=== PATIENT | male | born 1970 | race Caucasian/White ===

== ENCOUNTER 2021-07-03 08:36 | Day surgery (SDC) | payer OTHER ==
[2021-07-01 14:50] VITALS: BMI 29.9
[~2021-07-03 08:36] MED LIST: LACTATED RINGERS 1,000 ML IV SCH
[2021-07-03 09:11] VITALS: TEMP 98.2
[2021-07-03] MEDS ORDERED: PROPOFOL 10 MG/ML 20 ML VIAL IV ONE (10:10)
--- NOTE | 2021-07-03 10:14 | P.HPIHPCON ---
History of Present Illness H&P Date: 07/03/21 50-year-old male presents today for screening colonoscopy. He denies any blood in his stool. He has never had a colonoscopy. Denies any family history of colon cancer. Consent for Procedure: I have explained the operation/procedure to the patient, including the risks, be nefits, side effects, alternative therapies (including not receiving the proposed treatment or service), the likelihood of the patient achieving his/her goals, and potential recuperation problems for the procedure/sedation/analgesia, as well as any blood products, if indicated. I also explained to the patient the risks, benefits and side effects of the alternatives, as well as the risks related to not receiving the proposed procedure, care, treatment, or services. - Review of Systems All systems: negative Past Medical History Past Medical History: No Reported History History of Any Multi-Drug Resistant Organisms: None Reported Past Surgical History: No Surgical Hx Reported Past Anesthesia/Blood Transfusion Reactions: No Reported Reaction Additional Past Anesthesia/Blood Transfusion Reaction / Comment(s): Has never had anesthesia. Past Psychological History: No Psychological Hx Reported Smoking Status: Never smoker Past Alcohol Use History: Occasional Past Drug Use History: None Reported - Past Family History Father Family Medical History: Cancer, Deep Vein Thrombosis (DVT) Additional Family Medical History / Comment(s): Lung cancer. Medications and Allergies Home Medications Medication Instructions Recorded Confirmed Type Multivitamins, Thera [Multivitamin 1 tab PO DAILY 07/01/21 07/03/21 History (formulary)] Allergies Allergy/AdvReac Type Severity Reaction Status Date / Time No Known Allergies Allergy Verified 07/03/21 09:06 Surgical - Exam Osteopathic Statement: *. No significant issues noted on an osteopathic structural exam other than those noted in the History and Physical/Consult. Vital Signs Temp Pulse Resp BP Pulse Ox 98.2 F 57 L 16 146/88 99 07/03/21 09:07 07/03/21 09:07 07/03/21 09:07 07/03/21 09:07 07/03/21 09:07 - General well nourished, no distress - Eyes normal ocular movement - Neck trachea midline - Respiratory normal respiratory effort - Abdomen Abdomen: soft, non tender - Psychiatric oriented to time, oriented to person, oriented to place Assessment and Plan Plan: 50-year-old male presents today for screening colonoscopy. Risks, benefits and alternatives were provided to the patient. Consent was provided. He is agreeable with plan. Further recommendations after procedure.
--- NOTE | 2021-07-03 10:26 | P.PCN ---
Date of Procedure: 07/03/21 Preoperative Diagnosis: Screening Postoperative Diagnosis: Diverticulosis Procedure(s) Performed: Colonoscopy Anesthesia: MAC Surgeon: Bijan Edwards Pathology: none sent Condition: stable Disposition: same day Indications for Procedure: 50-year-old male presents today for screening colonoscopy. Risks, benefits and alternatives were provided to the patient. He did provide consent. Operative Findings: Mild diverticulosis Description of Procedure: The patient was brought to the endoscopy suite and placed in left lateral decubitus position and adequate sedation was achieved using conscious sedation. A digital rectal exam was performed and mild internal hemorrhoids palpated. An endoscope was then placed in the rectum and advanced to the cecum as identified by landmarks including the appendiceal orifice and the ileocecal valve. The prep was good. The colonoscope was then slowly withdrawn, examining for any mucosal abnormalities. The cecum, ascending, transverse, descending and sigmoid colon were visualized adequately. There were no obvious neoplastic lesions throughout the colon. There are no obvious polyps noted throughout the colon. Very mild amount of diverticulosis is noted in the sigmoid colon. Retroflexion was performed in the rectum and internal hemorrhoids were visible. Excess air was removed, the colonoscope withdrawn and the procedure terminated. The patient was then transferred to the recovery unit in stable condition. Repeat colonoscopy should be performed in 8 years.
[2021-07-03 10:46] VITALS: RESP 18
[2021-07-03 10:58] VITALS: BP 136/79; PULSE 67
== END 2021-07-03 11:09 | disposition home or self-care (01) ==
LOC: ORWHC2ENDO 08:36
PROVIDERS: ATTEND Surgery
DX: Z12.11 Encounter for screening for malignant neoplasm of colon (principal); K57.30 Diverticulosis of large intestine without perforation or abscess without bleeding; K64.8 Other hemorrhoids; Z82.49 Family history of ischemic heart disease and other diseases of the circulatory system; Z80.1 Family history of malignant neoplasm of trachea, bronchus and lung
CPT/HCPCS: J2704; G0121

== ENCOUNTER → 2022-01-01 | Outpatient (CLI) | payer OTHER ==
--- NOTE | 2022-01-01 06:48 | MR ---
EXAMINATION TYPE: MR lumbar spine wo con DATE OF EXAM: 01/01/2022 COMPARISON: None HISTORY: Lumbar pain going down left leg Multiplanar multiecho imaging of the lumbar spine with no contrast. Lumbar vertebrae have normal alignment. Disc spaces are fairly normal. No compression fracture. Lumba r nerve roots appear normal. Neural foramina are widely patent. The sacroiliac joints are intact. There is no lumbar paraspinal mass. No spinal stenosis. IMPRESSION: Negative MR scan of the lumbar spine. No lumbar disc herniation or spinal stenosis. No fracture.
== END | disposition home or self-care (01) ==
LOC: RADMRIMAIN 05:57
PROVIDERS: ATTEND Nurse Practitioner
DX: M54.50 Low back pain, unspecified (principal); M54.30 Sciatica, unspecified side
CPT/HCPCS: 72148